=== PATIENT | female | born 1955 | race Caucasian/White ===

== ENCOUNTER 2017-09-23 08:22 | Outpatient (CLI) | payer BC, MEDICARE ==
[2013-09-02 13:25] VITALS: BMI 30.6
[~2017-09-23 08:22] MED LIST: ARMOUR THYROID30 MG PO; ASPIRIN325 MG PO; MAXALT10 MG PO; SEROQUEL25 MG PO; SUBOXONE 2 MG-1 EAC1 SL
== END 2017-09-23 08:23 | disposition home or self-care (01) ==
LOC: D.MAMMO 08:22
DX: Z12.31 Encounter for screening mammogram for malignant neoplasm of breast (principal)

== ENCOUNTER → 2018-04-12 09:20 | Outpatient (CLI) | payer BC, MEDICARE ==
[2013-09-02 13:25] VITALS: BMI 30.6
== END | disposition home or self-care (01) ==
LOC: D.US 09:20
DX: R10.9 Unspecified abdominal pain (principal); K21.9 Gastro-esophageal reflux disease without esophagitis